=== PATIENT | male | born 1985 | race Caucasian/White ===

== ENCOUNTER 2016-05-28 07:59 | Day surgery (SDC) | payer MEDICARE, OTHER ==
[2016-05-28] MEDS ORDERED: PROPOFOL 500 MG/50 ML VIAL IV ONE (08:00)
[2016-05-28] MEDS ORDERED: ONDANSETRON HCL/PF 4 MG/ 2ML VIAL ONE (08:00)
[2016-05-28] MEDS ORDERED: LIDOCAINE HCL/PF 2% 100 MG/5 ML VIAL IJ ONE (08:00)
[2016-05-28] MEDS ORDERED: SALINE FLUSH 10 ML DISP.SYRIN IVF ONE (08:00)
[2016-05-28] MEDS ORDERED: LACTATED RINGERS 1,000 ML IV.SOLN IV ONE (08:00)
--- NOTE | 2016-05-28 11:24 | GI Report ---
REFERRING PHYSICIAN: Dr. Blayne Chavez MANAGER SUSTAINABILITY: Saurabh West MD PROCEDURE MEDICATION: Propofol as per anesthesia. INDICATIONS: Patient is a 30-year-old who has been having blood in his stool. His father had colon cancer in his 30s. The patient does have a seizure disorder and is challenged with an intellectual disability. He is referred for the above indications. He does have a guardian. PROCEDURE PERFORMED: Colonoscopy and polypectomy. PROCEDURE: An Olympus video colonoscope was advanced to the rectum. On rectal exam, I do not really feel a hemorrhoid at present. Retroflexion of the rectum showed no hemorrhoid or bleeding. At 20 cm, the patient does have a 2 to 3 mm flat polyp that was cold biopsied and removed in total. The colonoscope was slowly advanced all the way to the cecum. The appendiceal orifice and terminal ileum were normal. No evidence of Crohn's. On slow withdrawal, cecum, ascending colon, and transverse colon with redundancy. No obvious intraluminal lesions noted. Descending colon and sigmoid colon, again, with redundancy, no obvious intraluminal lesions noted until you get to the sigmoid at 20 cm, a 2 to 3 mm polyp was cold biopsied and removed. Retroflexion of the rectum showed no hemorrhoids. He may have had a fissure in the past. The patient tolerated the procedure well. FINDINGS: Polyp removed at 20 cm, otherwise, an atonic redundant colon. It did take some nurse compression to reach the cecum. RECOMMENDATIONS: 1. Increase bulk fiber in the diet. 2. Discontinue tobacco usage. 3. With the family history and a polyp, I recommend he have his colon re- looked at again within 5 years. cc: Dr. Blayne MCINTYRE
== END 2016-05-28 08:00 ==
LOC: OPSURG 07:59
PROVIDERS: ATTEND Internal Medicine Gastroenterology
DX: K92.1 Melena (principal); Z80.0 Family history of malignant neoplasm of digestive organs; G40.909 Epilepsy, unspecified, not intractable, without status epilepticus; F79 Unspecified intellectual disabilities; D12.5 Benign neoplasm of sigmoid colon
CPT/HCPCS: 88305; J2001; J2405; J2704; J7120; 45385; S1016

== ENCOUNTER 2016-06-29 11:07 | Outpatient (CLI) | payer MEDICARE, OTHER ==
[2016-06-29 22:11] LABS: LEVETIRACETAM(KEPPRA) LEVEL 20.5 ug/mL (6.0-46.0); VALPROIC ACID LEVEL 101.2 ug/mL (50.0-100.0)
== END 2016-06-29 11:10 ==
LOC: LAB 11:07
PROVIDERS: ATTEND Family Medicine
DX: Z79.899 Other long term (current) drug therapy (principal); G40.909 Epilepsy, unspecified, not intractable, without status epilepticus
CPT/HCPCS: 36415; 80164; 80177

== ENCOUNTER 2016-09-26 15:33 | Outpatient (CLI) | payer MEDICARE, OTHER ==
[2016-09-27 00:40] LABS: LEVETIRACETAM(KEPPRA) LEVEL 16.7 ug/mL (6.0-46.0)
== END 2016-09-26 15:35 ==
LOC: LAB 15:33
PROVIDERS: ATTEND Family Medicine
DX: G40.909 Epilepsy, unspecified, not intractable, without status epilepticus (principal); Z79.899 Other long term (current) drug therapy
CPT/HCPCS: 80164; 80177

== ENCOUNTER → 2016-12-06 | Outpatient (CLI) | payer MEDICARE, OTHER ==
[2016-12-06 17:02] LABS: LEVETIRACETAM(KEPPRA) LEVEL 23.2 ug/mL (6.0-46.0); VALPROIC ACID LEVEL 44.2 ug/mL (50.0-100.0)
== END ==
LOC: LAB 09:57
PROVIDERS: ATTEND Family Medicine
DX: G40.909 Epilepsy, unspecified, not intractable, without status epilepticus (principal); Z51.81 Encounter for therapeutic drug level monitoring
CPT/HCPCS: 36415; 80164; 80177

== ENCOUNTER 2017-05-28 16:05 | Outpatient (CLI) | payer MEDICARE, OTHER | END 2017-05-28 16:06 | LOC: LAB 16:05 | PROVIDERS: ATTEND Nurse Practitioner Family | DX: Z51.81 Encounter for therapeutic drug level monitoring (principal) | CPT/HCPCS: 80164 ==

== ENCOUNTER 2017-07-23 11:43 | Outpatient (CLI) | payer MEDICARE, OTHER ==
--- NOTE | 2017-07-23 13:05 | Diagnostic Imaging Report ---
PAVAN SANCHEZ [facility] [address] [facility] [address] [address] Report Submission Date: Jul 23, 2017 12:13:01 PM CDT Patient Study Name: ALTHEA YARBROUGH Date: Jul 23, 2017 11:49:30 AM CDT Modality Type: DX Gender: M Description: UPPER EXTREMITY : 89 Institution: [facility] Physician: PAVAN SANCHEZ Examination: Plain film right hand History: PAIN AND SWELLING AFTER HITTING CONCRETE STEPS (Hx) Comparison exams: None available Findings: 3 views the right hand demonstrate normal cortical margins. No fracture. No dislocation. No soft tissue abnormality. Impression: No acute osseous abnormality Electronically signed on Jul 23, 2017 12:13:01 PM CDT by: Obey MCINTYRE
== END 2017-07-23 11:44 ==
LOC: RAD 11:43
PROVIDERS: ATTEND Nurse Practitioner Family
DX: T14.90XA Injury, unspecified, initial encounter (principal); Y99.9 Unspecified external cause status
CPT/HCPCS: 73130

== ENCOUNTER 2017-09-21 10:48 | Emergency (ER) | payer MEDICARE, OTHER ==
[2017-09-21 10:58] VITALS: BP 122/70
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
[2017-09-21] MEDS ORDERED: MAG HYDROX/ALUMINUM HYD/SIMETH 30 ML UDC PO ONE (11:46)
== END 2017-09-21 11:26 | disposition home or self-care (01) ==
LOC: ED 10:48
DX: L02.91 Cutaneous abscess, unspecified (principal); B95.62 Methicillin resistant Staphylococcus aureus infection as the cause of diseases classified elsewhere
CPT/HCPCS: 10060

== ENCOUNTER 2017-10-21 12:43 | Outpatient (CLI) | payer MEDICARE, OTHER ==
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
== END 2017-10-21 12:44 ==
LOC: RAD 12:43
PROVIDERS: ATTEND Nurse Practitioner Family
DX: M53.3 Sacrococcygeal disorders, not elsewhere classified (principal)
CPT/HCPCS: 72220

== ENCOUNTER 2017-10-26 21:55 | Emergency (ER) | payer MEDICARE, OTHER ==
--- NOTE | 2017-10-26 22:04 | ED Physician Documentation ---
Seizure - HISTORIAN Historian: patient - HPI Stated Complaint: seizure Chief Complaint: Seizure Timing/Onset/Duration: other (per bystanders 7 min seizure ) Last known Well Date: 10/26/17 Last Known Well Time: 20:00 Last known Well Code/Unknown Code: Unknown Witnessed By: bystander Preceding Symptoms: none Character of Seizure(s): unresponsiveness, "shaking all over" Postictal Symptoms: none Location of Injury: head Further Comments: yes (per pt he states he was asleep and they heard him fall. Witnessed 7 min seizure. Per pt he hit the back of his head and that area does hurt. He states he did not feel the seizure aura. He had the last seizure prior to tonight over a month ago states he took his meds today. Denies any new meds. No other drugs or alcohol. Denies any loss of control of bowel or bladder) - ROS NEURO/PSYCH: denies: headache EYES/ENT: none CVS/RESP: none GI/: denies: adominal pain, nausea, vomiting MS/SKIN/LYMPH: none - PAST HX Previous seizure/seizure disorder: none Etiology: head injury Surgeries/Procedures: craniotomy Immunizations: UTD Allergies/Adverse Reactions: Allergies Allergy/AdvReac Type Severity Reaction Status Date / Time tramadol AdvReac Intermediate seizure Verified 10/26/17 22:19 Home Medications: Ambulatory Orders Medication Instructions Recorded Acetaminophen [Pain Relief Extra 1,000 mg PO PRN 10/26/17 Strength] Aripiprazole [Abilify] 2 mg PO Q12 10/26/17 Bacitracin 1 pkt .ROUTE PRN 10/26/17 Bismuth Subsalicylate [Bismuth] 262 mg PO PRN 10/26/17 Calamine/Zinc Oxide [Calamine 1 ml .ROUTE PRN 10/26/17 Lotion] Chlorpheniramine Maleate 4 mg PO D 10/26/17 [Aller-Chlor] Divalproex Sodium [Depakote] 750 mg PO BID 10/26/17 Guaifenesin [Mucinex] 600 mg PO Q12 10/26/17 Hydrocortisone 2.5% Rectal 2.5 pkt .ROUTE PRN 10/26/17 [Proctosol-Hc 2.5% Rectal] Ranitidine HCl 150 mg PO BID 10/26/17 Tetrahydrozoline HCl 1 drop EACHEYE PRN 10/26/17 - SOCIAL HX Smoking History: non-smoker Alcohol Use: none Drug Use: none - FAMILY HX Family History: none - VITAL SIGNS Vital Signs: Vital Signs Temp Pulse Resp BP Pulse Ox 97.5 F L 81 16 122/59 94 10/26/17 22:55 10/26/17 22:55 10/26/17 22:55 10/26/17 22:55 10/26/17 22:55 - REVIEWED ASSESSMENTS Nursing Assessment Reviewed: Yes Vitals Reviewed: Yes ED Results Lab/Radiology - Radiology Radiology Impressions: Head CT without contrast CLINICAL HISTORY: Seizure. Fall with injury to the head. TECHNIQUE: CT examination of brain is performed in contiguous axial slices with sagittal and coronal reconstructions. FINDINGS: 4th ventricle lies in a normal midline position. The ventricles and sulci are within normal limits. There is no hypodense or hyperdense mass or intracranial hemorrhage. Retention cysts are evident in the maxillary sinus bilaterally. The paranasal sinuses and mastoid air cells are otherwise clear. IMPRESSION: Chronic paranasal sinus changes. Negative intracranial study. Electronically signed on Oct 26, 2017 10:40:19 PM CDT by: Glen Kim CLINICAL HISTORY: Seizure. Fall. TECHNIQUE: CT of the thoracic spine is performed in contiguous axial slices with sagittal and coronal reconstructions. FINDINGS: The alignment of the vertebrae is anatomic. There is no evident fracture. The diameter of the bony spinal canal is within normal limits. Paravertebral soft tissues are unremarkable. Visualized posterior ribs are intact. IMPRESSION: Negative CT of the thoracic spine. Electronically signed on Oct 26, 2017 10:45:48 PM CDT by: Glen Kim - Orders Orders: ED Orders Category Date Time Status CT BRAIN W/O CONTRAST Stat Exams 10/26/[address] T-SPINE W/O CONTRAST Stat Exams 10/26/17 Completed Seizure Physical Exam - Physical Exam General Appearance: no acute distress, alert Altered Mental Status Higher Functions: alert, oriented x3, no evidence of acute CVA, mood/affect nml EENT: nml eye inspection, PERRL Neck/Back: normal inspection, other (pain with palpation on left side of t spine. No obvious injury ) Respiratory: no resp. distress, breath sounds nml CVS: reg rate & rhythm, heart sounds normal, equal pulses, no murmur Abdomen: non-tender, nml bowel sounds Skin: warm/dry, normal color, other (no area of concern on skin where he hit his head ) Extremities: normal range of motion, non-tender, normal inspection, no pedal edema Observed Seizure Activity in ED: generalized - Nexus Criteria Neg Nexus Criteria: Nexus criteria neg Discharge Clincal Impression: Seizure Referrals: Samara Cody [Primary Care Provider] - 2 Days Comments: 1. Continue meds as prescribed 2. Follow up with PCP in 2-4 days for any further concerns 3. Return to ER for any concerns Condition: Stable Disposition: 01 HOME, SELF-CARE Decision to Admit: NO Date of Decison to Admit: 10/26/17 Decision Time: 22:47
--- NOTE | 2017-10-26 22:42 | Diagnostic Imaging Report ---
STAR KOCH [facility] [address] [facility] [address] [place], [place]. [address] Report Submission Date: Oct 26, 2017 10:40:19 PM CDT Patient Study Name: ALTHEA YARBROUGH Date: Oct 26, 2017 10:18:29 PM CDT Modality Type: CT\SR Gender: M Description: CT BRAIN W/O CONTRAST : 89 Institution: [facility] Physician: STAR KOCH Head CT without contrast CLINICAL HISTORY: Seizure. Fall with injury to the head. TECHNIQUE: CT examination of brain is performed in contiguous axial slices with sagittal and coronal reconstructions. FINDINGS: 4th ventricle lies in a normal midline position. The ventricles and sulci are within normal limits. There is no hypodense or hyperdense mass or intracranial hemorrhage. Retention cysts are evident in the maxillary sinus bilaterally. The paranasal sinuses and mastoid air cells are otherwise clear. IMPRESSION: Chronic paranasal sinus changes. Negative intracranial study. Electronically signed on Oct 26, 2017 10:40:19 PM CDT by: Glen MCINTYRE
--- NOTE | 2017-10-26 22:46 | Diagnostic Imaging Report ---
STAR KOCH [facility] [address] [facility] [address] [place], [place]. [address] Report Submission Date: Oct 26, 2017 10:45:48 PM CDT Patient Study Name: ALTHEA YARBROUGH Date: Oct 26, 2017 10:21:13 PM CDT Modality Type: CT\SR Gender: M Description: CT T-SPINE W/O CONTRAS : 89 Institution: [facility] Physician: STAR KOCH CT of the thoracic spine CLINICAL HISTORY: Seizure. Fall. TECHNIQUE: CT of the thoracic spine is performed in contiguous axial slices with sagittal and coronal reconstructions. FINDINGS: The alignment of the vertebrae is anatomic. There is no evident fracture. The diameter of the bony spinal canal is within normal limits. Paravertebral soft tissues are unremarkable. Visualized posterior ribs are intact. IMPRESSION: Negative CT of the thoracic spine. Electronically signed on Oct 26, 2017 10:45:48 PM CDT by: Glen MCINTYRE
[2017-10-26 23:06] VITALS: BP 122/59
== END 2017-10-26 23:00 | disposition home or self-care (01) ==
LOC: ED 21:55
DX: R56.9 Unspecified convulsions (principal)
CPT/HCPCS: 70450; 72128; 99284

== ENCOUNTER 2017-11-20 00:36 | Emergency (ER) | payer MEDICARE, OTHER ==
--- NOTE | 2017-11-20 00:45 | ED Physician Documentation ---
General Adult - HISTORIAN Historian: patient, paramedics - HPI Stated Complaint: seizure Chief Complaint: General Adult Onset: minutes Timing: better Severity: moderate Further Comments: yes (Pt is a 32 yo male who lives in assisted living who has a seizure d/o. 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 Pt is A & O on arrival. He c/o headache, 7/ severity. 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 Pt did not strike his head and does not have neck pain. Seizure occurred during sleep. Pt was seen here 10/26/17 for seizure which also occurred during sleep. ? oxygen saturation in pt with TUAN (on CPAP).) - ROS CONST: weakness EYES/ENT: none CVS/RESP: none GI/: none MS/SKIN/LYMPH: none NEURO/PSYCH: other (seizure) - PAST HX Past History: other (seizure d/o; TUAN on CPAP; hx craniotomy; heart murmur; GERD.) Allergies/Adverse Reactions: Allergies Allergy/AdvReac Type Severity Reaction Status Date / Time tramadol AdvReac Intermediate seizure Verified 11/20/17 01:02 Home Medications: Ambulatory Orders Medication Instructions Recorded Acetaminophen [Pain Relief Extra 1,000 mg PO PRN 10/26/17 Strength] Aripiprazole [Abilify] 2 mg PO DAILY 10/26/17 Divalproex Sodium [Depakote] 750 mg PO BID 10/26/17 Ranitidine HCl 150 mg PO BID 10/26/17 - SOCIAL HX Smoking History: cigarettes (1/2 ppd) - FAMILY HX Family History: No - VITAL SIGNS Vital Signs: Vital Signs Temp Pulse Resp BP Pulse Ox 122/59 10/26/17 22:55 - REVIEWED ASSESSMENTS Nursing Assessment Reviewed: Yes Vitals Reviewed: Yes Progress - Progress Progress: NS 1 L IVF Ativan 1 mg IV Toradol 15 mg IV for headache improved, headache better Depakote & Keppra levels pending (results-->pcp Samara Cody) f/u pcp - EKG/XRAY/CT EKG: NSR (HR=63; T-wave inversions in I, II, aVL, V6; LVH by voltage & ST/T wave changes.) General Adult Physical Exam - PHYSICAL EXAM GENERAL APPEARANCE: mild distress EENT: pharynx normal NECK: normal inspection, supple RESPIRATORY: no resp distress, chest non-tender, breath sounds normal CVS: reg rate & rhythm, heart sounds normal (heart murmur not appreciated) ABDOMEN: soft, no organomegaly, normal bowel sounds BACK: normal inspection, no CVA tenderness SKIN: warm/dry, normal color EXTREMITIES: non-tender, normal range of motion, no evidence of injury, no edema NEURO: oriented X3, CN's nml as tested, motor nml, sensation nml (baseline mental status per blood bank supervisor) Discharge Clincal Impression: Seizure Referrals: Samara Cody [Primary Care Provider] - Condition: Stable Disposition: 01 HOME, SELF-CARE Decision to Admit: NO Decision Time: 02:45
[2017-11-20 00:54] LABS: BASOPHILS % 0.4 (0.0-1.5); EOSINOPHILS % 1.9 % (0.0-6.8); MEAN CORPUSCULAR HEMOGLOBIN 29.9 pg (28.0-34.0); MEAN CORPUSCULAR VOLUME 88.7 fl (80.0-100.0); MONOCYTES % 6.3 % (0.0-11.0); NEUTROPHILS # 6.1 # k/uL (1.4-7.7)
[2017-11-20 01:13] LABS: eGFR (African) > 60; eGFR (Non-African) > 60
[2017-11-20] MEDS: LORazepam 2 MG/ML VIAL IVP ONE (01:31)
[2017-11-20] MEDS: KETOROLAC TROMETHAMINE 30 MG/1ML VIAL IVP ONE (01:31)
[2017-11-20] MEDS: 0.9 % SODIUM CHLORIDE 1,000 ML IV ONE ×2 (02:05)
[2017-11-20 02:43] VITALS: BP 116/55
[2017-11-20 08:57] LABS: CANNABINOIDS NEGATIVE ng/mL (< 50); METHYLENEDIOXYMETHAMPHETAMINE NEGATIVE ng/mL (<500)
[2017-11-20 20:11] LABS: VALPROIC ACID LEVEL 57.5 ug/mL (50.0-100.0)
== END 2017-11-20 02:35 | disposition home or self-care (01) ==
LOC: ED 00:36
DX: G40.909 Epilepsy, unspecified, not intractable, without status epilepticus (principal)
CPT/HCPCS: 80053; 80164; 80177; 84484; 85025; 93005; G0481; J1885; J2060; J7030; 80377; 96365; 96375; 99284

== ENCOUNTER 2017-11-22 22:55 | Emergency (ER) | payer MEDICARE, OTHER ==
--- NOTE | 2017-11-22 23:06 | ED Physician Documentation ---
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 No new symtpoms. Staff member with him states he is getting set up with neurolgist KACIE .) - ROS NEURO/PSYCH: headache EYES/ENT: none - PAST HX Previous seizure/seizure disorder: occasional Etiology: other (GERD ) Immunizations: UTD Allergies/Adverse Reactions: Allergies Allergy/AdvReac Type Severity Reaction Status Date / Time tramadol AdvReac Intermediate seizure Verified 11/22/17 22:59 Home Medications: Ambulatory Orders Medication Instructions Recorded Acetaminophen [Pain Relief Extra 1,000 mg PO PRN 10/26/17 Strength] Aripiprazole [Abilify] 2 mg PO DAILY 10/26/17 Divalproex Sodium [Depakote] 750 mg PO BID 10/26/17 Ranitidine HCl 150 mg PO BID 10/26/17 - SOCIAL HX Smoking History: non-smoker Alcohol Use: none Drug Use: none - FAMILY HX Family History: none - VITAL SIGNS Vital Signs: Vital Signs Temp Pulse Resp BP Pulse Ox 116/55 11/20/17 02:35 - REVIEWED ASSESSMENTS Nursing Assessment Reviewed: Yes Vitals Reviewed: Yes Seizure Physical Exam - Physical Exam General Appearance: no acute distress, alert Altered Mental Status Higher Functions: alert, oriented x3, mood/affect nml, abnml respond to command EENT: nml eye inspection, PERRL Neck/Back: normal inspection Respiratory: no resp. distress, breath sounds nml, no evidence of rib injury CVS: reg rate & rhythm, heart sounds normal, equal pulses, no murmur Abdomen: non-tender, nml bowel sounds Skin: warm/dry, normal color Extremities: normal range of motion, non-tender, normal inspection, no pedal edema Observed Seizure Activity in ED: generalized Discharge Clincal Impression: Seizure Referrals: Primary Doctor,No [Primary Care Provider] - 2 Days Comments: 1. Continue meds 2. Follow up with Neurologist 3. Return to ER for any further concerns Condition: Stable Disposition: 01 HOME, SELF-CARE Decision to Admit: NO Date of Decison to Admit: 11/22/17 Decision Time: 23:14
[2017-11-22 23:28] VITALS: BP 130/66
== END 2017-11-22 23:13 | disposition home or self-care (01) ==
LOC: ED 22:55
DX: G40.89 Other seizures (principal)
CPT/HCPCS: 99283

== ENCOUNTER 2018-01-07 20:22 | Emergency (ER) | payer MEDICARE, OTHER ==
[2018-01-07] MEDS ORDERED: methylPREDNISolone SOD SUCC 125 MG/2 ML VIAL IVP ONE (20:39)
[2018-01-07] MEDS ORDERED: IPRATROPIUM/ALBUTEROL SULFATE 3 ML AMPUL.NEB NEB ONE ×2 (20:39→21:46)
[2018-01-07 20:43] VITALS: BP 115/45
--- NOTE | 2018-01-07 20:44 | ED Physician Documentation ---
Chest Pain - HISTORIAN Historian: patient - HPI Stated Complaint: Chest pain Chief Complaint: Chest Pain Additional Information: Patient with past medical history of MR, seizure disorder, asthma, TUAN (wears Cpap) presents to ED with substernal chest pain which started today and cough for the past 30 days. Patient states he has had a productive cough with yellow sputum for about 30 days. His chest pain started today, 4/10 dull achy, and is worse with deep inspiration. He went to PCP today and was told stop smoking with referral to cardiology. His cough and chest pain worsened tonight so he came to the ED. Patient states he does not have an inhaler anymore but he used to. He also states he rarely uses his cpap. He stopped smoking today. Onset: days ago (30 days) Timing: gradual onset Duration: waxing, waning Last known Well Date: 12/21/17 Last Known Well Time: 12:00 Context: other (coughing) Severity: mild Quality: aching Chest Pain Radiation: other (substernal) Chest Pain Signs/Symptoms: denies: diaphoresis, palpitations Worsened By: deep breaths Relieved By: rest Further Comments: no - ROS CONST: denies: fever MS/LYMPH: denies: calf pain, ankle swelling GI/: none EYES/ENT: none SKIN/ENDO: none NEURO/PSYCH: none - PAST HX VA risk factors: no pertinent history DVT/PE Risk Factors: none TAD/AAA risk factors: none Neuro deficit: none GI disease: GERD Lung disease: asthma Surgeries/Procedures: none Allergies/Adverse Reactions: Allergies Allergy/AdvReac Type Severity Reaction Status Date / Time tramadol AdvReac Intermediate seizure Verified 01/07/18 20:35 Home Medications: Ambulatory Orders Medication Instructions Recorded Acetaminophen [Pain Relief Extra 1,000 mg PO PRN 10/26/17 Strength] Aripiprazole [Abilify] 2 mg PO DAILY 10/26/17 Divalproex Sodium [Depakote] 750 mg PO BID 10/26/17 Ranitidine HCl 150 mg PO BID 10/26/17 Albuterol Sulfate [Proair HFA] 2 inh IH Q4 PRN #1 hfa.aer.ad 01/07/18 Azithromycin 500 mg PO DAILY 5 Days tablet 01/07/18 Bacitracin 1 each TP PRN PRN 01/07/18 Calamine/Zinc Oxide [Calamine 1 appl TP PRN PRN 01/07/18 Lotion] Citalopram Hydrobromide [Celexa] 20 mg PO QD 01/07/18 Hydrocortisone [Cortisone] 1 appl TP PRN PRN 01/07/18 Lamotrigine [Lamictal] 100 mg PO BID 01/07/18 Melatonin 5 mg PO HS 01/07/18 Mirtazapine 15 mg PO HS 01/07/18 Montelukast Sodium [Singulair] 10 mg PO HS #30 tablet 01/07/18 Prednisone 10 mg PO DIRECTED #18 tablet 01/07/18 Tetrahydrz/Dext 70/Peg 400/Pvp 1 drop OP PRN PRN 01/07/18 [Visine Advanced Eye Drop] guaiFENesin DM [Robitussin Dm] 10 ml PO Q4 PRN 01/07/18 - SOCIAL HX Smoking History: greater than 1 pack/day (25 pack year history) Alcohol Use: none Drug Use: none - FAMILY HX Family HX: none - VITAL SIGNS Vital Signs: Vital Signs Temp Pulse Resp BP Pulse Ox 91 H 18 115/45 94 01/07/18 20:22 01/07/18 20:22 01/07/18 20:22 01/07/18 20:22 - REVIEWED ASSESSMENTS Nursing Assessment Reviewed: Yes Vitals Reviewed: Yes Progress - Progress Progress: 2129 Patient states his chest still hurts but he his breathing a little better after breathing treatment. - EKG/XRAY/CT EKG: NSR, LVH ED Results Lab/Radiology - Lab Results Lab Results: EKG results - sinus rhythm 88 bpm. left ventricular hypertrophy - Radiology Radiology Impressions: 2 views chest Clinical history: Chest pain Findings: Heart size is normal. The pulmonary vasculature is normal. No pleural effusion, pneumothorax or alveolar consolidation. Impression: Negative Electronically signed on Jan 07, 2018 9:14:46 PM CDT by: Tobias Rodríguez - Orders Orders: ED Orders Category Date Time Status Place IV Lock 1T Care 01/07/18 20:39 Ordered CBC REF Routine Lab 01/07/18 20:30 Received CMP Routine Lab 01/07/18 Ordered TROPONIN I (cTnI) Stat Lab 01/07/18 Ordered Ipratropium/Albuterol Sulfate [Duoneb] Med 01/07/18 20:39 Once 3 ml NEB NOW ONE methylPREDNISolone SOD SUCC [Solu-MEDROL] Med 01/07/18 20:39 Once 125 mg IVP NOW ONE Chest Pain Physical Exam - EXAM General Appearance: no acute distress EENT: ANN Neck: nml inspection Respiratory: no resp. distress, decreased air movement, wheezes CVS: reg. rate & rhythm, no murmur Abdomen: soft, normal bowel sounds, non-tender Skin: warm/dry Extremities: no edema Neuro: oriented X3 Discharge Clincal Impression: Asthma exacerbation, mild Acute bronchitis Qualifiers: Bronchitis organism: unspecified organism Qualified Code(s): J20.9 - Acute bronchitis, unspecified Prescriptions: Albuterol Sulfate [Proair HFA] 2 inh IH Q4 PRN #1 hfa.aer.ad PRN Reason: Wheezing Azithromycin 500 mg PO DAILY 5 Days tablet Montelukast Sodium [Singulair] 10 mg PO HS #30 tablet Prednisone 10 mg PO DIRECTED #18 tablet Referrals: Primary Doctor,No [REFERRING] - 2 Days Additional Instructions: Continue to stop smoking. Wear Cpap with sleep. IF mask is uncomfortable try a different mask. Take all medications as prescribed. Condition: Good Disposition: 01 HOME, SELF-CARE Decision to Admit: NO Date of Decison to Admit: 01/07/18 Decision Time: 21:56
[2018-01-07 21:12] LABS: eGFR (Non-African) > 60
[2018-01-07] MEDS ORDERED: AZITHROMYCIN 250 MG TABLET PO ONE (21:46)
[2018-01-07 21:51] LABS: BASO % 0.5 % (0.0-1.5); EOS % 1.4 % (0.0-6.8); LYMPH ABS # 2.36 thou/uL (0.60-4.00); MCH. 28.9 pg (28.0-34.0); MCV 85.4 fL (80.0-100.0); MONOCYTE % 7.9 % (0.0-11.0); MONOCYTE ABS # 0.87 thou/uL (0.00-0.90); PLATELET COUNT 184 thou/uL (130-400)
--- NOTE | 2018-01-08 06:04 | Diagnostic Imaging Report ---
KAMRYN BENTLEY [facility] [address] [facility] [address] [address] Report Submission Date: Jan 07, 2018 9:14:46 PM CDT Patient Study Name: ALTHEA YARBROUGH Date: Jan 07, 2018 8:50:37 PM CDT Modality Type: DX Gender: M Description: CHEST : 89 Institution: [facility] Physician: KAMRYN BENTLEY 2 views chest Clinical history: Chest pain Findings: Heart size is normal. The pulmonary vasculature is normal. No pleural effusion, pneumothorax or alveolar consolidation. Impression: Negative Electronically signed on Jan 07, 2018 9:14:46 PM CDT by: Tobias MCINTYRE
== END 2018-01-07 22:00 | disposition home or self-care (01) ==
LOC: ED 20:22
DX: J40 Bronchitis, not specified as acute or chronic (principal); J45.901 Unspecified asthma with (acute) exacerbation
CPT/HCPCS: 71046; 80053; 84484; 85025; J2930; 93005; 94640; 96374; 99284; S1016

== ENCOUNTER 2018-12-25 16:51 | Emergency (ER) | payer MEDICARE, OTHER ==
--- NOTE | 2018-12-25 17:06 | ED Physician Documentation ---
Fall - HISTORIAN Historian: patient - HPI Stated Complaint: fell head first into shed head and neck pain Chief Complaint: General Adult Onset: just prior to arrival Where: home Context: tripped, slipped r: mild Associated Symptoms:: no loss of consciousness Location of Pain/Injury: head, neck Injury to Right Extremity: none Injury to Left Extremity: none Further Comments: yes (states he was playing basketball and he fell and then slid head first into a shed. He has left upper head and mid neck pain. Denies any LOC denies any loss of sensation. No loss of control of bowel or bladder. Did not take any OTC meds) - ROS CONST: no problems - PAST HX Past History: none Immunizations: UTD Allergies/Adverse Reactions: Allergies Allergy/AdvReac Type Severity Reaction Status Date / Time tramadol AdvReac Intermediate seizure Verified 12/25/18 17:09 Home Medications: Ambulatory Orders Medication Instructions Recorded Divalproex Sodium [Depakote] 750 mg PO BID 10/26/17 Ranitidine HCl 150 mg PO BID 10/26/17 Citalopram Hydrobromide [Celexa] 20 mg PO QD 01/07/18 Lamotrigine [Lamictal] 100 mg PO BID 01/07/18 Melatonin 5 mg PO HS 01/07/18 Mirtazapine 15 mg PO HS 01/07/18 Olanzapine [Zyprexa] 1 tab PO DAILY 12/25/18 - SOCIAL HX Smoking History: non-smoker Alcohol Use: none Drug Use: none - FAMILY HX Family History: none - VITAL SIGNS Vital Signs: Vital Signs Temp Pulse Resp BP Pulse Ox 115/45 01/07/18 22:00 - REVIEWED ASSESSMENTS Nursing Assessment Reviewed: Yes Vitals Reviewed: Yes ED Results Lab/Radiology - Radiology Radiology Impressions: CT brain noncontrast Date of study: CLINICAL HISTORY: PAIN AFTER FALL PATIENT STATES FELL INTO SIDE OF A GARAGE TODA Y (Hx) / ITS.REASON fall hit head TECHNIQUE: 5 mm contiguous axial images of the brain, noncontrast. FINDINGS: There is no evidence of intracranial mass effect, hemorrhage, or acute hydrocephalus. The lateral ventricles are symmetrical and the 4th ventricle is midline without shift. No acute brain parenchymal changes or extra-axial fluid c ollections are identified. The posterior fossa contents are within normal limits. The calvarium is intact. The visualized sinuses and mastoid air cells are clear. IMPRESSION: No acute intracranial process. Electronically signed on Dec 25, 2018 5:49:17 PM CDT by: Tobias Rodríguez CT cervical spine. CLINICAL HISTORY: PAIN AFTER FALL PATIENT STATES FELL INTO SIDE OF A GARAGE TODAY (Hx) / ITS.REASON fall neck pain Note time : 12/25/2018 5:39:47 PM User : Misti Lacy PAIN AFTER FALL PATIENT STATES FELL INTO SIDE OF A GARAGE TODAY (DICOM Hx) TECHNIQUE: 3 mm contiguous axial images of the cervical spine with sagittal and coronal reconstructions. FINDINGS: The cervical spine alignment is normal. The cervical vertebral bodies are of normal height and the intervertebral disc spaces are of average width. The cervical vertebral bodies and posterior elements are intact. The spinal canal diameter is normal. There is no evidence of acute fracture or subluxation. The facets are in proper relationship bilaterally. The craniocervical and cer vicothoracic junctions are normal. IMPRESSION: No evidence of acute cervical spine fracture or subluxation. Electronically signed on Dec 25, 2018 5:51:58 PM CDT by: Tobias Rodríguez Fall Physical Exam - Physical Exam General Appearance: no acute distress, alert, c-collar in ED Head: trauma (two approx 2 cm abrasion on top of scalp . ) Neck: pain with neck movement (and pain with palpation mid posterior . NO obvious injury ) Eye: ANN ENT: nml external inspection Resp/CVS: chest non-tender, no ecchymosis, breath sounds nml, no resp. distress, heart sounds nml. No: rib tenderness Abdomen: soft Neuro: oriented x3 Skin: color nml, no rash Back: normal inspection, no CVA tenderness Joint: joints nml - Timothy Coma Score Eyes Open: Spontaneous Speech: Oriented Motor: Obeys Commands Discharge Clincal Impression: Fall Qualifiers: Encounter type: initial encounter Qualified Code(s): W19.XXXA - Unspecified fall, initial encounter Referrals: Elizabet Santizo MD [Primary Care Provider] - 2 Days Comments: 1. Keep areas on scalp clean and dry 2. OTC meds as directed as needed for pain 3. Return to ER for any increasing concerns 4. Follow up with PCP In 2 days Condition: Stable Disposition: 01 HOME, SELF-CARE Decision to Admit: NO Date of Decison to Admit: 12/25/18 Decision Time: 17:55
[2018-12-25 17:09] VITALS: BP 134/73
--- NOTE | 2018-12-26 09:54 | Diagnostic Imaging Report ---
STAR [facility] [address] [facility] [address] [place], [place]. [address] Report Submission Date: Dec 25, 2018 5:49:17 PM CDT Patient Study Name: ALTHEA YARBROUGH Date: Dec 25, 2018 5:13:39 PM CDT Modality Type: CT\SR Gender: M Description: CT BRAIN W/O CONTRAST : 89 Institution: [facility] Physician: STAR KOCH CT brain noncontrast Date of study: CLINICAL HISTORY: PAIN AFTER FALL PATIENT STATES FELL INTO SIDE OF A GARAGE TODAY (Hx) / ITS.REASON fall hit head TECHNIQUE: 5 mm contiguous axial images of the brain, noncontrast. FINDINGS: There is no evidence of intracranial mass effect, hemorrhage, or acute hydrocephalus. The lateral ventricles are symmetrical and the 4th ventricle is midline without shift. No acute brain parenchymal changes or extra-axial fluid collections are identified. The posterior fossa contents are within normal limits. The calvarium is intact. The visualized sinuses and mastoid air cells are clear. IMPRESSION: No acute intracranial process. Electronically signed on Dec 25, 2018 5:49:17 PM CDT by: Tobias MCINTYRE
--- NOTE | 2018-12-26 09:55 | Diagnostic Imaging Report ---
[facility] [address] [facility] [address] [place], [place]. [address] Report Submission Date: Dec 25, 2018 5:51:58 PM CDT Patient Study Name: ATLHEA YARBROUGH Date: Dec 25, 2018 5:15:40 PM CDT Modality Type: CT\SR Gender: M Description: CT C-SPINE W/O CONTRAS : 89 Institution: [facility] Physician: STAR KOCH CT cervical spine. CLINICAL HISTORY: PAIN AFTER FALL PATIENT STATES FELL INTO SIDE OF A GARAGE TODAY (Hx) / ITS.REASON fall neck pain Note time : 12/25/2018 5:39:47 PM User : Misti Lacy PAIN AFTER FALL PATIENT STATES FELL INTO SIDE OF A GARAGE TODAY (DICOM Hx) TECHNIQUE: 3 mm contiguous axial images of the cervical spine with sagittal and coronal reconstructions. FINDINGS: The cervical spine alignment is normal. The cervical vertebral bodies are of normal height and the intervertebral disc spaces are of average width. The cervical vertebral bodies and posterior elements are intact. The spinal canal diameter is normal. There is no evidence of acute fracture or subluxation. The facets are in proper relationship bilaterally. The craniocervical and cervicothoracic junctions are normal. IMPRESSION: No evidence of acute cervical spine fracture or subluxation. Electronically signed on Dec 25, 2018 5:51:58 PM CDT by: Tobias MCINTYRE
== END 2018-12-25 18:21 | disposition home or self-care (01) ==
LOC: ED 16:51
DX: S09.90XA Unspecified injury of head, initial encounter (principal); S19.9XXA Unspecified injury of neck, initial encounter; W01.198A Fall on same level from slipping, tripping and stumbling with subsequent striking against other object, initial encounter; Y93.67 Activity, basketball
CPT/HCPCS: 70450; 72125; 99282; 99283